=== PATIENT | female | born 1985 | race Native Hawaiian/Other Pacific Islander ===

== ENCOUNTER 2017-11-02 09:45 | Outpatient (CLI) | payer BC | END 2017-11-02 23:48 | disposition home or self-care (01) | LOC: RESP 09:45 | DX: R07.89 Other chest pain (principal); I47.1 Supraventricular tachycardia; R94.31 Abnormal electrocardiogram [ECG] [EKG]; I45.6 Pre-excitation syndrome | CPT/HCPCS: 93306 ==

== ENCOUNTER 2018-01-03 13:17 | Outpatient (CLI) | payer BC | END 2018-01-03 20:03 | disposition home or self-care (01) | LOC: MAMMO 13:17 | DX: N63.0 Unspecified lump in unspecified breast (principal) ==

== ENCOUNTER 2018-03-29 12:46 | Outpatient (CLI) | payer BC | END 2018-03-29 21:11 | disposition home or self-care (01) | LOC: US 12:46 | DX: R92.2 Inconclusive mammogram (principal) ==